=== PATIENT | female | born 1975 | race Caucasian/White ===

== ENCOUNTER 2020-01-09 10:24 | Outpatient (CLI) | payer OTHER, SELFPAY ==
--- NOTE | 2020-01-09 10:32 | MM_ITS ---
WS: [id number] DIAGNOSTIC BILATERAL DIGITAL MAMMOGRAM WITH CAD LEFT breast ultrasound, limited HISTORY: FIBROCYSTIC DISEASE OF BREAST COMPARISON: None available. TECHNIQUE: Bilateral craniocaudad, mediolateral oblique, and mediolateral views are submitted. Spot c ompression LEFT MLO and cc. Computer aided detection utilized. Breast composition: There are scattered areas of fibroglandular density. Mild asymmetry in the upper outer quadrant of the LEFT breast. Probably normal fibroglandular pattern. No persistent nodule. Ther e are benign calcifications in each breast. LEFT breast ultrasound, limited. Ultrasound in the upper outer quadrant of the LEFT breast is negative for suspicious mass or shadowin g. Normal fibroglandular echogenicity. MM/[place] [id number] IMPRESSION: BI-RADS: 2-Benign FOLLOW UP: 1 Year Follow-up
--- NOTE | 2020-01-09 11:32 | US_ITS ---
WS: [id number] DIAGNOSTIC BILATERAL DIGITAL MAMMOGRAM WITH CAD LEFT breast ultrasound, limited HISTORY: FIBROCYSTIC DISEASE OF BREAST COMPARISON: None available. TECHNIQUE: Bilateral craniocaudad, mediolateral oblique, and mediolateral views are submitted. Spot c ompression LEFT MLO and cc. Computer aided detection utilized. Breast composition: There are scattered areas of fibroglandular density. Mild asymmetry in the upper outer quadrant of the LEFT breast. Probably normal fibroglandular pattern. No persistent nodule. Ther e are benign calcifications in each breast. LEFT breast ultrasound, limited. Ultrasound in the upper outer quadrant of the LEFT breast is negative for suspicious mass or shadowin g. Normal fibroglandular echogenicity. US/US breast LT limited* [id number] IMPRESSION: BI-RADS: 2-Benign FOLLOW UP: 1 Year Follow-up
== END 2020-01-09 10:25 | disposition home or self-care (01) ==
LOC: RADSHAW 10:30
PROVIDERS: PCP Physician Assistant Medical; Visit Provider Obstetrics & Gynecology
DX: N60.19 Diffuse cystic mastopathy of unspecified breast (principal); N64.89 Other specified disorders of breast
CPT/HCPCS: 76642; 77066